=== PATIENT | female | born 1980 | race Caucasian/White ===

== ENCOUNTER 2024-01-24 07:27 | Day surgery (SDC) | payer BC, OTHER ==
[2024-01-16 15:58] VITALS: BMI 22.1
[2024-01-24] MEDS ORDERED: PROPOFOL 120 ML ONE (07:32)
[2024-01-24 08:54] VITALS: RESP 19; TEMP 97.5
[2024-01-24 08:56] VITALS: BP 99/59; PULSE 75
== END 2024-01-24 08:57 | disposition home or self-care (01) ==
LOC: FASU-ENDO 07:27
PROVIDERS: ATTEND Internal Medicine Gastroenterology
PROC: 0DBL8ZX Excision of Transverse Colon, Via Natural or Artificial Opening Endoscopic, Diagnostic (ICD-10-PCS; 2024-01-24)
PROC: 0DBN8ZX Excision of Sigmoid Colon, Via Natural or Artificial Opening Endoscopic, Diagnostic (ICD-10-PCS; 2024-01-24)
PROC: 0DBP8ZX Excision of Rectum, Via Natural or Artificial Opening Endoscopic, Diagnostic (ICD-10-PCS; 2024-01-24)
PROC: 0DBH8ZX Excision of Cecum, Via Natural or Artificial Opening Endoscopic, Diagnostic (ICD-10-PCS; 2024-01-24)
PROC: 0DBK8ZX Excision of Ascending Colon, Via Natural or Artificial Opening Endoscopic, Diagnostic (ICD-10-PCS; principal; 2024-01-24 08:13)
DX: Z12.11 Encounter for screening for malignant neoplasm of colon (principal); K52.89 Other specified noninfective gastroenteritis and colitis; K62.89 Other specified diseases of anus and rectum; Z87.19 Personal history of other diseases of the digestive system
CPT/HCPCS: 81025; 88305-TC